=== PATIENT | male | born 1970 | race Caucasian/White ===

== ENCOUNTER → 2016-10-09 | Outpatient (CLI) | payer MEDICARE ==
[~2016-10-09] MED LIST: ADVIL200 MG PO; CLARITIN10 M2 PO; FISH OIL 1,2001 EACH PO; PRILOSEC OTC20 MG PO; TRAMADOL HCL50 MG PO; ZOFRAN4 MG PO
== END ==
LOC: EMI 08:15
DX: M54.2 Cervicalgia (principal); M48.02 Spinal stenosis, cervical region
CPT/HCPCS: 72141

== ENCOUNTER → 2016-10-31 | Outpatient (CLI) | payer MEDICARE | LOC: EMI 13:00 | DX: M54.5 Low back pain (principal); M54.6 Pain in thoracic spine; M99.73 Connective tissue and disc stenosis of intervertebral foramina of lumbar region | CPT/HCPCS: 72146; 72148 ==

== ENCOUNTER → 2016-12-24 | Outpatient (CLI) | payer MEDICARE | LOC: MRI 13:00 | DX: M25.512 Pain in left shoulder (principal); M75.92 Shoulder lesion, unspecified, left shoulder | CPT/HCPCS: 73221 ==